=== PATIENT | female | born 1980 | race African-American/Black ===

== ENCOUNTER 2024-06-26 16:20 | Emergency (ER) | payer MEDICAID, OTHER ==
[~2024-06-26] VITALS: Ht 162.6 cm; Wt 68.0 kg
[~2024-06-26 16:20] MED LIST: ACET-868 PO; ARIP10TA9 PO; IBUP-785 PO; LORA1TAB PO; MAGN400O21 PO; OMEP20CA4 PO; SERT25TA PO; TEMA15CA5 PO; TRIA10PO3 MC
[2024-06-26] MEDS ORDERED: NAPR-1164 PO (17:59)
[2024-06-26] MEDS ORDERED: IBUPROFEN 600 MG TABLET ONE (19:42)
[2024-06-26] MEDS: IBUPROFEN 600 MG TABLET PO ONE (19:44)
[2024-06-26 19:47] VITALS: BP 123/90; TEMP 97.7; O2SAT 99
== END 2024-06-26 19:48 | disposition home or self-care (01) ==
LOC: ER 16:34
DX: G89.29 Other chronic pain (principal); M79.602 Pain in left arm; F32.9 Major depressive disorder, single episode, unspecified; F20.9 Schizophrenia, unspecified; Z79.1 Long term (current) use of non-steroidal anti-inflammatories (NSAID); Z79.899 Other long term (current) drug therapy
CPT/HCPCS: 73060-TC